=== PATIENT | female | born 1990 | race Two or more races ===

== ENCOUNTER 2024-01-27 13:51 | Inpatient (IN) | payer BC ==
[2024-01-27] MEDS ORDERED: ONDANSETRON 4 MG/2 ML VIAL ONE ×2 (14:56→17:32)
[2024-01-27] MEDS ORDERED: ACETAMINOPHEN INJECTION 100 ML IVPB ONE (14:56)
[2024-01-27] MEDS ORDERED: KETOROLAC TROMETHAMINE 30 MG/1 ML VIAL ONE (14:56)
[2024-01-27 15:01] LABS: BASO % 0.7 % (0-2.0); EOS % 1.4 % (0-4.5); HEMOGLOBIN 13.2 GM/dL (10.7-15.3); LYMPH % 12.5 % (8-40); MCH 28.8 pg (25.7-33.7); MCHC 33.7 g/dl (32.0-36.0); MEAN CELL VOLUME 85.3 fl (80-96); MONO % 7.3 % (3.8-10.2); NEUT % 78.1 % (42.8-82.8); PLATELET COUNT 232 10^3/uL (134-434); RBC 4.57 M/mm3 (3.60-5.2); RDW 15.5 % (11.6-15.6); WHITE BLOOD COUNT 9.4 K/mm3 (4.0-10.0)
[2024-01-27 15:05] LABS: EPI CELLS 16 /uL (0-25.1); HYALINE CASTS 4 /uL (0-3.1); PH,URINE 5.5 (5.0-8.0); URINE APPEARANCE CLOUDY; URINE BILIRUBIN 1+ (NEGATIVE); URINE COLOR DK YELLOW; URINE GLUCOSE (UA) NEGATIVE (NEGATIVE); URINE KETONE 3+ (NEGATIVE); URINE LEUK ESTERASE 1+ (NEGATIVE); URINE NITRITE POSITIVE (NEGATIVE); URINE PROTEIN 2+ (NEGATIVE); URINE RBC 244 /uL (0-23.9); URINE WBC 184 /uL (0-25.8)
[2024-01-27 15:07] LABS: HCG,QUALITATIVE URINE Negative
[2024-01-27] MEDS: KETOROLAC TROMETHAMINE 30 MG/1 ML VIAL IVPUSH ONE (15:10)
[2024-01-27] MEDS: SODIUM CHLORIDE 0.9% 500 ML INFUS.BAG IV ONE (15:10)
[2024-01-27] MEDS: ONDANSETRON 4 MG/2 ML VIAL IVPUSH ONE ×2 (15:10→17:35)
[2024-01-27] MEDS: ACETAMINOPHEN 1000 MG/100 ML BAG IVPB ONE (15:10)
[2024-01-27 15:27] LABS: POTASSIUM 3.8 mmol/L (3.5-5.1)
[2024-01-27 15:29] LABS: CALCIUM 9.4 mg/dL (8.5-10.1)
[2024-01-27 15:30] LABS: ALBUMIN 4.2 g/dl (3.4-5.0); BLOOD UREA NITROGEN 5.9 mg/dL (7-18)
[2024-01-27 15:33] LABS: CREATININE 0.7 mg/dL (0.55-1.3)
[2024-01-27 15:34] LABS: BILIRUBIN,TOTAL 0.5 mg/dL (0.2-1); TOT PROT 7.3 g/dl (6.4-8.2)
[2024-01-27] MEDS: morphine CARPU-JECT 2 MG/1 ML DISP.SYRIN IVPUSH ONE (17:35)
[2024-01-27] MEDS ORDERED: PIPERACILLIN/TAZOB 4.5 GM 4.5 GM/100 ML BAG IVPB ONE (18:37)
[2024-01-27] MEDS: PIPERACILLIN/TAZOB 4.5 GM 4.5 GM in DEXTROSE 5%-WATER 100 ML IVPB ONE (18:43)
[2024-01-27] MEDS ORDERED: morphine SULFATE 4 MG/ML VIAL ONE (19:47)
[2024-01-27] MEDS: morphine CARPU-JECT 4 MG/1 ML DISP.SYRIN IVPUSH ONE (19:57)
[2024-01-27 20:18] LABS: INR 1.08 (0.83-1.09); PROTHROMBIN TIME (PATIENT) 12.4 SEC (9.7-13.0)
[2024-01-27 20:21] LABS: ACTIVATED PTT 33.7 SECONDS (25.2-36.5)
[2024-01-28] MEDS ORDERED: ACETAMINOPHEN 1000 MG/100 ML BAG IVPB PRN (00:06)
[2024-01-28] MEDS: SODIUM CHLORIDE 1,000 ML IV SCH (01:35)
[2024-01-28 01:41] VITALS: BMI 22.8
[2024-01-28] MEDS: CEFTRIAXONE 1 GM in DEXTROSE 5%-WATER - 50 ML IVPB SCH (06:36)
[2024-01-28] MEDS: ONDANSETRON 4 MG/2 ML VIAL IVPUSH PRN (08:43)
[2024-01-28] MEDS: TAMSULOSIN HCL 0.4 MG CAP PO SCH (08:43)
[2024-01-28 08:56] LABS: POTASSIUM 3.5 mmol/L (3.5-5.1)
[2024-01-28 08:59] LABS: BASO % 0.8 % (0-2.0); EOS % 5.1 % (0-4.5); HEMATOCRIT 33.5 % (32.4-45.2); HEMOGLOBIN 11.2 GM/dL (10.7-15.3); LYMPH % 29.6 % (8-40); MCH 28.7 pg (25.7-33.7); MCHC 33.5 g/dl (32.0-36.0); MEAN CELL VOLUME 85.7 fl (80-96); MEAN PLT VOLUME 10.7 fl (7.5-11.1); MONO % 11.1 % (3.8-10.2); NEUT % 53.4 % (42.8-82.8); PLATELET COUNT 180 10^3/uL (134-434); RDW 15.7 % (11.6-15.6); WHITE BLOOD COUNT 5.9 K/mm3 (4.0-10.0)
[2024-01-28 09:02] LABS: BLOOD UREA NITROGEN 5.7 mg/dL (7-18); CALCIUM 8.3 mg/dL (8.5-10.1); MAGNESIUM 1.9 mg/dL (1.8-2.4)
[2024-01-28 09:05] LABS: CREATININE 0.7 mg/dL (0.55-1.3); PHOSPHOROUS 3.5 mg/dL (2.5-4.9)
[2024-01-28 09:07] LABS: BILIRUBIN,TOTAL 0.3 mg/dL (0.2-1); TOT PROT 5.6 g/dl (6.4-8.2)
[2024-01-28 09:12] LABS: ALBUMIN 3.1 g/dl (3.4-5.0)
[2024-01-29] MEDS ORDERED: SENNOSIDES/DOCUSATE COMBO (SENNA PLUS) TABLET (UD) PO PRN (08:09)
[2024-01-29] MEDS ORDERED: MAGNESIUM HYDROX 2400MG/30ML ORAL SUSPENSION 30 ML CUP PO PRN (08:09)
[2024-01-29 08:57] LABS: BASO % 0.9 % (0-2.0); EOS % 6.5 % (0-4.5); HEMATOCRIT 33.3 % (32.4-45.2); HEMOGLOBIN 11.3 GM/dL (10.7-15.3); LYMPH % 32.6 % (8-40); MCH 28.9 pg (25.7-33.7); MEAN PLT VOLUME 10.3 fl (7.5-11.1); MONO % 9.6 % (3.8-10.2); NEUT % 50.4 % (42.8-82.8); PLATELET COUNT 171 10^3/uL (134-434); RBC 3.92 M/mm3 (3.60-5.2); RDW 15.8 % (11.6-15.6); WHITE BLOOD COUNT 4.7 K/mm3 (4.0-10.0)
[2024-01-29 09:10] LABS: CHLORIDE 111 mmol/L (98-107); POTASSIUM 3.6 mmol/L (3.5-5.1); SODIUM 142 mmol/L (136-145)
[2024-01-29 09:13] LABS: CALCIUM 8.3 mg/dL (8.5-10.1)
[2024-01-29 09:14] LABS: ANION GAP 5 mmol/L (4-13); CO2 26 mmol/L (21-32); GLUCOSE,RANDOM 84 mg/dL (74-106)
[2024-01-29 09:17] LABS: CREATININE 0.5 mg/dL (0.55-1.3)
[2024-01-29 09:25] LABS: BLOOD UREA NITROGEN 2.6 mg/dL (7-18)
[2024-01-29] MEDS: SULFAMETHOXAZOLE/TRIMETHOPRIM 800MG/160MG D.S. TABLET PO SCH (21:18)
[2024-01-30] MEDS: ACETAMINOPHEN 325 MG TABLET (FP) PO ONE ×2 (03:49→14:23)
[2024-01-30 08:58] LABS: BASO % 1.1 % (0-2.0); EOS % 6.6 % (0-4.5); HEMATOCRIT 34.7 % (32.4-45.2); HEMOGLOBIN 11.8 GM/dL (10.7-15.3); LYMPH % 38.7 % (8-40); MCH 28.9 pg (25.7-33.7); MCHC 33.8 g/dl (32.0-36.0); MEAN CELL VOLUME 85.4 fl (80-96); MEAN PLT VOLUME 10.5 fl (7.5-11.1); MONO % 9.7 % (3.8-10.2); NEUT % 43.9 % (42.8-82.8); PLATELET COUNT 202 10^3/uL (134-434); RBC 4.07 M/mm3 (3.60-5.2); RDW 15.7 % (11.6-15.6); WHITE BLOOD COUNT 4.5 K/mm3 (4.0-10.0)
[2024-01-30 08:59] LABS: POTASSIUM 3.4 mmol/L (3.5-5.1)
[2024-01-30 09:05] LABS: BLOOD UREA NITROGEN 3.5 mg/dL (7-18); CALCIUM 8.8 mg/dL (8.5-10.1)
[2024-01-30 09:09] LABS: CREATININE 0.5 mg/dL (0.55-1.3)
[2024-01-30] MEDS: SODIUM CHLORIDE 1,000 ML IV SCH (09:16)
[2024-01-30 15:05] VITALS: BP 107/61; PULSE 92; RESP 18; TEMP 98.1
== END 2024-01-30 17:25 | disposition home or self-care (01) | DRG 463 ==
LOC: JER 13:51 → JERBED 19:13 → J7W 23:49 → OBSVTOIN 01-29 07:24
PROVIDERS: ADMIT Internal Medicine; ATTEND Internal Medicine
DX: N13.6 Pyonephrosis (principal); B95.7 Other staphylococcus as the cause of diseases classified elsewhere; R11.2 Nausea with vomiting, unspecified; R53.81 Other malaise; R63.0 Anorexia; Z68.22 Body mass index [BMI] 22.0-22.9, adult
CPT/HCPCS: 36415; 74176-TC; 80048; 80053; 81003; 83735; 84100; 84703; 85025; 85610; 85730; 86850; 86870; 86880; 86900; 86901; 86902; 87040; 87086; 87186; 93005; 93010; 99285-25; G0378; J0131